=== PATIENT | female | born 1970 | race Two or more races ===

== ENCOUNTER → 2017-01-02 | Outpatient (CLI) | payer BC ==
--- NOTE | ~2017-01-02 | MY11 ---
[facility] RADIOLOGY TEXT RESULTS PATIENT: MILTON MERCEDES LOCATION: [facility] : 68 UNIT #: [id number] AGE: [address]: MAITE MCKINNEY SEX: F ORDER DR: [id number] [address] [address] [id number] O MR#: [id number] Acc #: [id number] NAME: MILTON MERCEDES : 1970 SEX: F STUDY DATE/TIME: 01/02/2017 9:11 UNIT: [facility] ROOM: STUDY DESCRIPTION: MY Mammogram Screening Dig [place] Attending Physician: Maite Mckinney M.D. Ordering Physician: Maite Mckinney M.D. Primary Care Physician: Jarrett Sauceda M.D. MEDICAL IMAGING REPORT This report is preliminary unless electronic signature is present EXAM Bilateral digital screening mammogram with CAD 01/02/2017 INDICATION 46-year-old female for routine screening. No reported problems. No personal or family history of breast cancer. No surgeries. TECHNIQUE CC and MLO views of the breasts were obtained and reviewed with an FDA-approved CAD device. COMPARISON 01/22/2013, 01/13/2013. FINDINGS Breast parenchyma is predominantly fatty replaced. The pattern is unchanged. Benign intramammary node in the upper outer posterior left breast unchanged. There is no new dominant nodule, mass or suspicious cluster of microcalcifications. IMPRESSION Negative screening mammogram. 1-year followup recommended. Patients over the age of 40 are entered into a reminder system with target due date for the next mammogram. A result letter will also be sent to the patient. BIRADS: 1 Negative Dictated by... Wes Fabian M.D. [facility] RADIOLOGY TEXT RESULTS PATIENT: MILTON MERCEDES LOCATION: [facility] : 68 UNIT #: [id number] AGE: [address]: MAITE MCKINNEY SEX: F ORDER DR: THIS IS AN ELECTRONICALLY VERIFIED REPORT Wes Fabian M.D. at 01/09/2017 4:50 PM SRAVANI/cortes TD: 01/09/2017 12:05 JOB #: [id number] MEDICAL IMAGING REPORT COPY
== END | disposition home or self-care (01) ==
LOC: CWCC 09:01
DX: Z12.31 Encounter for screening mammogram for malignant neoplasm of breast (principal)
CPT/HCPCS: G0202